=== PATIENT | male | born 1985 | race Caucasian/White ===

== ENCOUNTER → 2017-11-03 | Outpatient (CLI) | payer MEDICAID | LOC: M.WC 01:31 | DX: L89.313 Pressure ulcer of right buttock, stage 3 (principal); K21.9 Gastro-esophageal reflux disease without esophagitis; E78.2 Mixed hyperlipidemia; K59.01 Slow transit constipation; J45.909 Unspecified asthma, uncomplicated; G80.8 Other cerebral palsy ==

== ENCOUNTER → 2019-05-17 | Outpatient (CLI) | payer MEDICAID | LOC: M.WC 10:00 | DX: L89.152 Pressure ulcer of sacral region, stage 2 (principal); L89.213 Pressure ulcer of right hip, stage 3; L89.312 Pressure ulcer of right buttock, stage 2; G80.8 Other cerebral palsy; J45.909 Unspecified asthma, uncomplicated; J42 Unspecified chronic bronchitis; K21.9 Gastro-esophageal reflux disease without esophagitis ==

== ENCOUNTER → 2019-05-28 | Outpatient (CLI) | payer MEDICAID | LOC: M.WC 05:00 | DX: L89.312 Pressure ulcer of right buttock, stage 2 (principal); L89.322 Pressure ulcer of left buttock, stage 2; L89.152 Pressure ulcer of sacral region, stage 2; G80.8 Other cerebral palsy; K21.9 Gastro-esophageal reflux disease without esophagitis; G80.9 Cerebral palsy, unspecified; J45.909 Unspecified asthma, uncomplicated; J42 Unspecified chronic bronchitis ==

== ENCOUNTER → 2019-06-18 | Outpatient (CLI) | payer MEDICAID ==
--- NOTE | 2019-06-20 12:22 | CON ---
[address] [address] CONSULTATION Name: NATALEE VELARDE JR Room: [facility]#: [id number] Admission: 06/18/19 Attend Phys: Jennifer Diaz MD Discharge: Date of : 83 Report #: [id number] THIS REPORT FOR: //name// CC: Jennifer Jordanuri DATE OF SERVICE: 06/19/2019 INFECTIOUS DISEASE CONSULTATION ATTENDING PHYSICIAN: Dr. Jennifer Diaz. REASON FOR EVALUATION: Here for a superficial ulcer involving the right buttock, had been concern about skin and soft tissue infection. HISTORY OF PRESENT ILLNESS: Chart reviewed, the patient examined. The patient returns today in followup for ongoing wound care with superficial right buttock lesion. PHYSICAL EXAMINATION: SKIN: On examination, the wound appears much less inflamed. Overall, there is increased epithelialization. It is difficult to ascertain pain given his overall situation; although, on palpation, there does not appear to be fluctuance or subcutaneous masses or fluid collection. He had completed course of prescribed antibiotics within the last 2 weeks. ASSESSMENT AND PLAN: Chronic right buttock wounds. At this point, we would not extend the antibiotics. There was some discussion about swelling of the wound and a consideration of a diverting colostomy. At this point, would continue prescribed wound care per Dr. Diaz. We will be available as needed. <ELECTRONICALLY SIGNED> By: Austin Bolanos MD 06/20/19 1222 [id number] [id number] Bolanos MD /hao
== END ==
LOC: M.WC 06-04 09:00
DX: L89.213 Pressure ulcer of right hip, stage 3 (principal); L89.222 Pressure ulcer of left hip, stage 2; L89.312 Pressure ulcer of right buttock, stage 2; G80.8 Other cerebral palsy; G80.9 Cerebral palsy, unspecified; J45.909 Unspecified asthma, uncomplicated; J42 Unspecified chronic bronchitis; K21.9 Gastro-esophageal reflux disease without esophagitis

== ENCOUNTER → 2019-07-13 | Outpatient (CLI) | payer MEDICAID | LOC: M.WC 05:01 | DX: L89.213 Pressure ulcer of right hip, stage 3 (principal); L89.312 Pressure ulcer of right buttock, stage 2; G80.8 Other cerebral palsy; J45.909 Unspecified asthma, uncomplicated; J42 Unspecified chronic bronchitis; K21.9 Gastro-esophageal reflux disease without esophagitis ==